=== PATIENT | female | born 1945 | race Caucasian/White ===

== ENCOUNTER 2017-02-28 00:22 | Day surgery (SDC) | payer MEDICARE ==
[2017-02-28] VITALS (14 sets, daily range): BP systolic 101–136; BP diastolic 56–72; PULSE 56–62; RESP 16–22; O2SAT 96–99
[~2017-02-28] VITALS: Ht 157.5 cm; Wt 83.4 kg
[~2017-02-28 00:22] MED LIST: AMLO10TA3 PO; CARV12.52 PO; CARV6.252 PO; CHOL10008 PO; HYG25 PO; LISI40TA PO; MAGN400T4 PO; MULT-1018 PO; POTA10TA7 PO; WARF2.5T82 PO; WARF5TAB7 PO
[2017-02-28 07:45] LABS: BASOPHILS % (AUTO) 0.5 % (0-3); EOSINOPHILS % (AUTO) 3.8 % (0-5); MONOCYTES % (AUTO) 15.5 % (4-12); Mean Corpuscular Hemoglobin 30.4 pg (27.0-35.0); Mean Corpuscular Volume 92.6 fL (81-100); NEUTROPHILS % (AUTO) 48.5 % (40-74); Platelet Count 247 bil/L (150-400)
[2017-02-28 07:49] LABS: INR 2.46 ratio
[2017-02-28] MEDS ORDERED: Heparin 1,000 Unit/mL 10 mL Inj ONE (08:00)
[2017-02-28] MEDS ORDERED: 0.9% Sodium Chloride 1,000 ML ONE ×2 (08:00→08:01)
--- NOTE | 2017-02-28 08:14 | NUR ---
Admitted for an ablation for atrial flutter by Dr Mak. Patient is here with her , Linwood. NSB no ectopy on admission this AM.
[2017-02-28] MEDS ORDERED: Heparin 10,000 Unit/1,000 mL NS Premix IV ONE (08:35)
[2017-02-28] MEDS ORDERED: fentaNYL-PF 50 mCg/mL 2 mL Inj ONE ×2 (09:27→10:24)
[2017-02-28] MEDS ORDERED: HYDROcodone-APAP 5-325 mg Tablet PO PRN (10:55)
[2017-02-28] MEDS ORDERED: Ondansetron 2 mg/mL 2 mL Inj IVPUSH PRN (10:55)
--- NOTE | 2017-02-28 13:50 | PROCED ---
[address] [address] PROCEDURE NOTE PATIENT: J CARLOS ROBBINS : 1945 MR#: [id number] ADMIT: 02/28/2017 JOB ID: [id number] DATE OF SERVICE: 02/28/2017 PREOPERATIVE DIAGNOSIS(ES): Paroxysmal symptomatic atrial flutter. POSTOPERATIVE DIAGNOSIS(ES): Paroxysmal symptomatic atrial flutter, status post ablation. PROCEDURES PERFORMED: 1. Comprehensive electrophysiology study with left atrial pacing recording via the coronary sinus catheter. 2. Three-dimensional electroanatomical mapping using the CARTO 3 system. 3. Atrial flutter ablation (atrial ablation; cavotricuspid isthmus ablation). 4. Fluoroscopy. SURGEON: Vel Mak MD, electrophysiology attending. ASSISTANTS: Teresita Rendon. ANESTHESIA: Bolus dosing of Versed and fentanyl were utilized for appropriate level of sedation. INDICATION: The patient is a pleasant 71-year-old woman with a history of tachycardia-mediated cardiomyopathy and recurrent drug-refractory atrial flutter. After discussion of risks and benefits of catheter-based mapping and ablation, she opted to proceed. PROCEDURAL DESCRIPTION: Following informed signed consent, the patient was taken to the EP laboratory in a fasting and nonsedated state where she was prepped and draped in the usual sterile fashion. The right inguinal region was infiltrated with 1% lidocaine. Then, using modified Seldinger technique, one 8 and two 7-Italian sheaths were inserted into the right femoral vein under fluoroscopic guidance. A deflectable decapolar catheter was advanced to the coronary sinus with the most proximal bipole at the os of the sinus. A 20-pole Livewire catheter was used to encircle the tricuspid annulus. A J curve SmartTouch irrigated ablation catheter was brought to the field and used to create a three-dimensional electroanatomical map of the right atrium and cavotricuspid isthmus using the CARTO 3 system. The patient was in sinus rhythm at the onset of the case. Pacing was undertaken from the coronary sinus os while monitoring the atrial activation pattern on the Livewire catheter. A linear series of ablations was performed from the ventricular to the IVC aspect of the cavotricuspid isthmus ultimately leading to medial to lateral conduction block. Lateral to medial was confirmed. A 30-minute waiting period was undertaken during which bidirectional block was confirmed. During the course of this study, we did complete a comprehensive electrophysiology study with right atrial pacing recording, right ventricular pacing recording, His bundle recording and left atrial packing recording via the coronary sinus catheter. All catheters and sheaths were removed. Manual pressure was held for hemostasis. The patient was transferred to the [facility] for monitoring, bedrest and discharge. COMPLICATIONS: None. ESTIMATED BLOOD LOSS: Negligible. FINDINGS: 1. Baseline rhythm is sinus with an RR interval of 1169 msec, WV 180 msec, QRS 180 msec in the left bundle branch morphology. QT interval 461 msec. 2. Intracardiac intervals: AH interval 80 msec, HV 57 msec. 3. On retrograde conduction no VA conduction was seen. 4. Cavotricuspid isthmus ablation as described above with bidirectional block. Specifically, transisthmus time is 180 msec in the medial to lateral direction and 184 msec in the lateral to medial. IMPRESSION: Successful cavotricuspid isthmus ablation for typical atrial flutter. PLAN: 1. Bedrest x4 hours. 2. Continue current medication regimen including anticoagulation. 3. Follow up with Bhaskar Dunne in four weeks and with Dr. Jones thereafter. ATTENDING STATEMENT: Vel Mak MD, electrophysiology attending, was present for and supervised/performed all aspects of this procedure.
--- NOTE | 2017-02-28 15:59 | NUR ---
Successful atrial flutter ablation by Dr Mak today. NSB mostly throughout the day. Right leg access site is soft and non-tender. Home care instructions reviewed with patient and patient's , "Linwood". F/U planned with Bhaskar VASQUEZ for Dr Mak.
== END 2017-02-28 23:59 | disposition home or self-care (01) ==
LOC: SOUO 00:22
PROVIDERS: ATTEND Internal Medicine Cardiovascular Disease
DX: I48.3 Typical atrial flutter (principal); Z79.01 Long term (current) use of anticoagulants; I42.9 Cardiomyopathy, unspecified; I44.7 Left bundle-branch block, unspecified; I10 Essential (primary) hypertension; E78.5 Hyperlipidemia, unspecified; E03.9 Hypothyroidism, unspecified; Z86.718 Personal history of other venous thrombosis and embolism
CPT/HCPCS: 36415; 80048; 85025; 85610; 93005; 93613; 93621; 93653; 99152; 99153; C1730; C1731; C1732; C1893; J0131; J1644; J2250; J3010; J7030